=== PATIENT | male | born 1960 ===

== ENCOUNTER 2019-04-09 05:10 | Day surgery (SDC) | payer OTHER ==
[~2019-04-09 05:10] MED LIST: COLCHICINE0.6 MG; INDOMETHACIN25 MG PO
== END 2019-04-09 12:25 | disposition home or self-care (01) ==
LOC: CIR.AMB 05:10
DX: M1A.0411 Idiopathic chronic gout, right hand, with tophus (tophi) (principal); M1A.03 Idiopathic chronic gout, wrist